=== PATIENT | female | born 1985 | race Caucasian/White ===

== ENCOUNTER 2017-07-31 21:23 | Emergency (ER) | payer OTHER ==
[2017-07-31 22:05] VITALS: BP 118/59
== END 2017-08-01 00:09 | disposition home or self-care (01) ==
LOC: ED 21:23
DX: S00.212A Abrasion of left eyelid and periocular area, initial encounter (principal); Y04.8XXA Assault by other bodily force, initial encounter; Y93.89 Activity, other specified; Y99.8 Other external cause status; Y92.89 Other specified places as the place of occurrence of the external cause
CPT/HCPCS: 90714; 90715